=== PATIENT | male | born 1955 | race Caucasian/White ===

== ENCOUNTER 2016-05-28 11:22 | Outpatient (CLI) | payer BC, OTHER ==
[~2016-05-28 11:22] MED LIST: CLON2TAB PO; DESV50TA PO; DEXT5TAB15 PO
[2016-05-28 12:07] LABS: ADD UA MICROSCOPIC NO; BASOPHILS # (AUTO) 0.1 /CMM (0.0-0.2); BASOPHILS % (AUTO) 1.4 % (0.0-2.0); DIFF TOTAL % 100 %; EOSINOPHILS # (AUTO) 0.1 /CMM (0.0-0.7); EOSINOPHILS % (AUTO) 2.3 % (0.0-6.0); HEMATOCRIT 46 % (39-51); HEMOGLOBIN 15.2 g/dL (13.5-17.5); KETONES,URINE NEGATIVE (NEGATIVE); LEUKOCYTE ESTERASE ,URINE NEGATIVE (NEGATIVE); LYMPHOCYTES # (AUTO) 2.3 /CMM (0.8-4.8); LYMPHOCYTES % (AUTO) 42.3 % (20.0-44.0); MEAN CORPUSCULAR HEMOGLOBIN 31 PG (26.0-33.0); MEAN CORPUSCULAR HGB CONC 33 g/dl (31.0-36.0); MEAN CORPUSCULAR VOLUME 95 fL (80-96); MONOCYTES # (AUTO) 0.4 /CMM (0.1-1.30); MONOCYTES % (AUTO) 6.9 % (2.0-12.0); NEUTROPHILS # (AUTO) 2.5 /CMM (1.8-8.9); NEUTROPHILS % (AUTO) 47.1 % (43.0-81.0); PH,URINE 5.5 (5.0-8.0); PLATELET COUNT (AUTO) 208 /CMM (150-450); RED BLOOD CELL COUNT(AUTO) 4.84 MIL/uL (4.5-6.0); WHITE BLOOD COUNT (AUTO) 5.4 K/uL (4.3-11.0)
[2016-05-28 12:23] LABS: INR 0.99 (0.87-1.13); PROTHROMBIN TIME 10.7 SECS (9.5-12.7)
[2016-05-28 12:27] LABS: ALBUMIN 3.9 g/dL (3.4-5.0); BILIRUBIN,TOTAL 0.3 mg/dL (0.2-1.0); CALCIUM, SERUM 9.4 mg/dL (8.5-10.1); CREATININE 1.1 mg/dL (0.6-1.3); POTASSIUM 4.1 mmol/L (3.5-5.1); TOTAL PROTEIN, SERUM 7.1 g/dL (6.4-8.2)
== END 2016-05-28 23:59 | disposition home or self-care (01) ==
LOC: RAD 11:22
PROVIDERS: ATTEND Legal Medicine
DX: I10 Essential (primary) hypertension (principal); E78.5 Hyperlipidemia, unspecified; R53.1 Weakness; R06.02 Shortness of breath
CPT/HCPCS: 36415; 71020-TC; 80053-TC; 81000-TC; 85025-TC; 85730-TC

== ENCOUNTER 2016-06-03 05:15 | Day surgery (SDC) | payer BC, OTHER ==
[2016-06-03] MEDS ORDERED: IV SET PRIMARY 1 EA INFUS.SET MC ONE (05:41)
[2016-06-03] MEDS ORDERED: IV LR 1000 ML 1,000 ML ONE (05:41)
[2016-06-03] MEDS ORDERED: CEFAZOLIN SODIUM/DEXTROSE,ISO 50 ML IV ONE (05:41)
[2016-06-03] MEDS ORDERED: NEEDLELESS EST SET LARGE BORE 1 EA INFUS.SET MC ONE (05:42)
[2016-06-03] MEDS ORDERED: SECONDARY IV SET 1 EA INFUS.SET MC ONE (05:42)
[2016-06-03] MEDS ORDERED: LIDOCAINE HCL/PF 1% 30 ML SDV ONE (06:08)
[2016-06-03] MEDS ORDERED: MIDAZOLAM HCL 2 MG/2ML VIAL ONE (06:37)
[2016-06-03] MEDS ORDERED: FENTANYL PF 100MCG/2ML AMPUL ONE (06:37)
[2016-06-03] MEDS ORDERED: methylPREDNISolone ACETATE 80 MG/ML VIAL ONE (07:02)
== END 2016-06-03 08:10 ==
LOC: DS 05:15
PROVIDERS: ATTEND Specialist
DX: S83.242A Other tear of medial meniscus, current injury, left knee, initial encounter (principal); X58.XXXA Exposure to other specified factors, initial encounter; Y93.89 Activity, other specified; Y92.89 Other specified places as the place of occurrence of the external cause; Y99.8 Other external cause status; M94.262 Chondromalacia, left knee; I10 Essential (primary) hypertension; E78.5 Hyperlipidemia, unspecified; F32.9 Major depressive disorder, single episode, unspecified
CPT/HCPCS: 88304-TC; 88305-TC; 88311-TC; A4217; A6253; J0690; J1040; J2250; J3010; J3490; J7120

== ENCOUNTER 2017-07-29 14:16 | Outpatient (CLI) | payer BC ==
[2017-07-29 15:24] LABS: BASOPHILS % (AUTO) 0.6 % (0.0-2.0); EOSINOPHILS % (AUTO) 2.2 % (0.0-6.0); HEMATOCRIT 44 % (39-51); HEMOGLOBIN 15.3 g/dL (13.5-17.5); LYMPHOCYTES # (AUTO) 1.9 /CMM (0.8-4.8); LYMPHOCYTES % (AUTO) 31.1 % (20.0-44.0); MEAN CORPUSCULAR HGB CONC 35 g/dl (31.0-36.0); MEAN CORPUSCULAR VOLUME 93 fL (80-96); MONOCYTES # (AUTO) 0.5 /CMM (0.1-1.30); MONOCYTES % (AUTO) 7.5 % (2.0-12.0); NEUTROPHILS # (AUTO) 3.6 /CMM (1.8-8.9); NEUTROPHILS % (AUTO) 58.6 % (43.0-81.0); PLATELET COUNT (AUTO) 202 /CMM (150-450); RDW COEFFICIENT OF VARIATION 13.4 (11.5-15.0); RED BLOOD CELL COUNT(AUTO) 4.73 MIL/uL (4.5-6.0); WHITE BLOOD COUNT (AUTO) 6.1 K/uL (4.3-11.0)
[2017-07-29 15:34] LABS: BILIRUBIN,TOTAL 0.7 mg/dL (0.2-1.0); CALCIUM, SERUM 9.6 mg/dL (8.5-10.1); POTASSIUM 3.9 mmol/L (3.5-5.1); TOTAL PROTEIN, SERUM 7.4 g/dL (6.4-8.2)
[2017-07-29 16:07] LABS: APPEARANCE,URINE CLEAR (CLEAR); BILIRUBIN,URINE NEGATIVE (NEGATIVE); BLOOD, URINE NEGATIVE Ery/uL (NEGATIVE); COLOR,URINE YELLOW (YELLOW); KETONES,URINE NEGATIVE (NEGATIVE); LEUKOCYTE ESTERASE ,URINE NEGATIVE (NEGATIVE); NITRITE, URINE NEGATIVE (NEGATIVE); PROTEIN,URINE NEGATIVE (NEGATIVE); UGLUCOSE NEGATIVE (NEGATIVE); UROBILINOGEN,URINE 0.2 EU/dL (0.2)
[2017-07-29 17:30] LABS: PROSTATE SPECIFIC ANTIGEN SCR 2.22 ng/mL (0.00-4.00)
[2017-07-29 17:51] LABS: THYROID STIMULATING HORMONE 3.136 uIU/mL (0.358-3.74)
== END 2017-07-29 23:59 | disposition home or self-care (01) ==
LOC: LAB 14:16
PROVIDERS: ATTEND Legal Medicine
DX: Z00.01 Encounter for general adult medical examination with abnormal findings (principal); R79.89 Other specified abnormal findings of blood chemistry
CPT/HCPCS: 36415; 80053-TC; 80061-TC; 81000-TC; 82306; 82728-TC; 82746; 83540-TC; 84153-TC; 84402; 84403; 84443-TC; 84550-TC; 85025-TC

== ENCOUNTER 2019-03-03 10:43 | Outpatient (CLI) | payer BC, MEDICARE ==
[2019-03-03 11:31] LABS: BASOPHILS % (AUTO) 0.8 % (0.0-2.0); EOSINOPHILS % (AUTO) 2.7 % (0.0-6.0); HEMATOCRIT 47 % (39-51); HEMOGLOBIN 15.8 g/dL (13.5-17.5); LYMPHOCYTES # (AUTO) 1.9 /CMM (0.8-4.8); LYMPHOCYTES % (AUTO) 34.5 % (20.0-44.0); MEAN CORPUSCULAR HGB CONC 34 g/dl (31.0-36.0); MEAN CORPUSCULAR VOLUME 95 fL (80-96); MONOCYTES # (AUTO) 0.5 /CMM (0.1-1.30); MONOCYTES % (AUTO) 8.2 % (2.0-12.0); NEUTROPHILS % (AUTO) 53.8 % (43.0-81.0); PLATELET COUNT (AUTO) 183 /CMM (150-450); WHITE BLOOD COUNT (AUTO) 5.6 K/uL (4.3-11.0)
[2019-03-03 11:41] LABS: ALBUMIN 3.9 g/dL (3.4-5.0); BILIRUBIN,TOTAL 0.7 mg/dL (0.2-1.0); CALCIUM, SERUM 9.4 mg/dL (8.5-10.1); TOTAL PROTEIN, SERUM 7.1 g/dL (6.4-8.2)
[2019-03-03 12:08] LABS: FREE T4 (FREE THYROXINE) 0.77 ng/dL (0.76-1.46); PROSTATE SPECIFIC ANTIGEN SCR 2.18 ng/mL (0.00-4.00); THYROID STIMULATING HORMONE 2.724 uIU/mL (0.358-3.74)
[2019-03-03 12:29] LABS: APPEARANCE,URINE CLEAR (CLEAR); BILIRUBIN,URINE NEGATIVE (NEGATIVE); BLOOD, URINE NEGATIVE Ery/uL (NEGATIVE); COLOR,URINE YELLOW (YELLOW); KETONES,URINE NEGATIVE (NEGATIVE); LEUKOCYTE ESTERASE ,URINE NEGATIVE (NEGATIVE); NITRITE, URINE NEGATIVE (NEGATIVE); PH,URINE 6.5 (5.0-8.0); PROTEIN,URINE NEGATIVE (NEGATIVE); UGLUCOSE NEGATIVE (NEGATIVE); UROBILINOGEN,URINE 0.2 EU/dL (0.2)
[2019-03-04 10:07] LABS: FOLIC ACID 10.2 ng/mL (>3.0)
== END 2019-03-03 23:59 | disposition home or self-care (01) ==
LOC: LAB 10:43
PROVIDERS: ATTEND Legal Medicine
DX: Z00.00 Encounter for general adult medical examination without abnormal findings (principal); D64.9 Anemia, unspecified; E55.9 Vitamin D deficiency, unspecified; N40.0 Benign prostatic hyperplasia without lower urinary tract symptoms; E78.00 Pure hypercholesterolemia, unspecified; I10 Essential (primary) hypertension
CPT/HCPCS: 36415; 80053-TC; 80061-TC; 81000-TC; 82306; 82728-TC; 83540-TC; 84153-TC; 84402; 84403; 84439-TC; 84443-TC; 84550-TC; 85025-TC

== ENCOUNTER → 2020-09-10 | Outpatient (CLI) | payer BC, MEDICARE | END | disposition home or self-care (01) | LOC: RAD 09:52 | PROVIDERS: ATTEND Legal Medicine | DX: M17.11 Unilateral primary osteoarthritis, right knee (principal); M11.261 Other chondrocalcinosis, right knee; M47.817 Spondylosis without myelopathy or radiculopathy, lumbosacral region; M43.17 Spondylolisthesis, lumbosacral region; M48.061 Spinal stenosis, lumbar region without neurogenic claudication; M25.78 Osteophyte, vertebrae; I70.0 Atherosclerosis of aorta; M25.562 Pain in left knee; M25.522 Pain in left elbow | CPT/HCPCS: 72100-TC; 73080-TC; 73562 ==

== ENCOUNTER 2021-05-19 10:37 | Outpatient (CLI) | payer MEDICARE, BC ==
[2021-05-19 12:33] LABS: BASOPHILS % (AUTO) 0.6 % (0.0-2.0); EOSINOPHILS % (AUTO) 2.2 % (0.0-6.0); HEMATOCRIT 46 % (39-51); HEMOGLOBIN 15.7 g/dL (13.5-17.5); LYMPHOCYTES # (AUTO) 1.4 K/uL (0.8-4.8); LYMPHOCYTES % (AUTO) 22.1 % (20.0-44.0); MEAN CORPUSCULAR HGB CONC 34 g/dl (31.0-36.0); MEAN CORPUSCULAR VOLUME 96 fL (80-96); MONOCYTES # (AUTO) 0.5 K/uL (0.1-1.30); MONOCYTES % (AUTO) 7.8 % (2.0-12.0); NEUTROPHILS # (AUTO) 4.2 K/uL (1.8-8.9); NEUTROPHILS % (AUTO) 67.3 % (43.0-81.0); PLATELET COUNT (AUTO) 181 K/uL (150-450); WHITE BLOOD COUNT (AUTO) 6.2 K/uL (4.3-11.0)
[2021-05-19 12:34] LABS: BILIRUBIN,URINE NEGATIVE (NEGATIVE); COLOR,URINE YELLOW (YELLOW); LEUKOCYTE ESTERASE ,URINE NEGATIVE (NEGATIVE); NITRITE, URINE NEGATIVE (NEGATIVE); PROTEIN,URINE NEGATIVE (NEGATIVE); UGLUCOSE NEGATIVE (NEGATIVE); UROBILINOGEN,URINE 0.2 EU/dL (0.2)
[2021-05-19 12:37] LABS: C-REACTIVE PROTEIN 0.4 mg/dL (0.0-0.9); FREE T4 (FREE THYROXINE) 0.9 ng/dL (0.76-1.46); PROSTATE SPECIFIC ANTIGEN SCR 2.55 ng/mL (0.00-4.00); THYROID STIMULATING HORMONE 3.33 uIU/mL (0.358-3.74)
[2021-05-19 12:42] LABS: ALBUMIN 4.1 g/dL (3.4-5.0); BILIRUBIN,TOTAL 1.1 mg/dL (0.2-1.0); CALCIUM, SERUM 9.5 mg/dL (8.5-10.1); POTASSIUM 3.5 mmol/L (3.5-5.1); TOTAL PROTEIN, SERUM 7.5 g/dL (6.4-8.2)
[2021-05-19 12:51] LABS: BACTERIA,URINE None seen /HPF (None Seen); RBC,URINE 0-2 /HPF (0-2); SQUAMOUS EPITHELIAL CELL,UR Rare /HPF (None Seen); WBC,URINE 0-2 /HPF (0-3)
[2021-05-22 01:06] LABS: *AREA 13 IGE,TOTAL 611 IU/mL (6-495)
== END 2021-05-19 23:59 | disposition home or self-care (01) ==
LOC: LAB 10:37
PROVIDERS: ATTEND Legal Medicine
DX: Z00.00 Encounter for general adult medical examination without abnormal findings (principal); E11.9 Type 2 diabetes mellitus without complications; E78.5 Hyperlipidemia, unspecified; E03.9 Hypothyroidism, unspecified; D64.9 Anemia, unspecified; J30.9 Allergic rhinitis, unspecified; R53.1 Weakness; Z12.5 Encounter for screening for malignant neoplasm of prostate
CPT/HCPCS: 36415; 80053-TC; 80061-TC; 81001; 82607-TC; 82728-TC; 82785; 83540-TC; 84153-TC; 84402; 84403; 84439-TC; 84443-TC; 85025-TC; 85652-TC; 86140-TC

== ENCOUNTER 2024-06-15 17:19 | Emergency (ER) | payer BC, MEDICARE ==
[~2024-06-15] VITALS: Ht 190.5 cm; Wt 76.7 kg
[2024-06-15 17:59] LABS: BASOPHILS % (AUTO) 0.3 % (0.0-2.0); EOSINOPHILS % (AUTO) 0.1 % (0.0-6.0); HEMATOCRIT 43 % (39-51); HEMOGLOBIN 15.1 g/dL (13.5-17.5); LYMPHOCYTES # (AUTO) 0.9 K/uL (0.8-4.8); LYMPHOCYTES % (AUTO) 6.3 % (20.0-44.0); MEAN CORPUSCULAR HEMOGLOBIN 34 PG (26.0-33.0); MEAN CORPUSCULAR HGB CONC 35 g/dl (31.0-36.0); MEAN CORPUSCULAR VOLUME 96 fL (80-96); MONOCYTES # (AUTO) 1.1 K/uL (0.1-1.30); MONOCYTES % (AUTO) 7.3 % (2.0-12.0); NEUTROPHILS # (AUTO) 12.7 K/uL (1.8-8.9); PLATELET COUNT (AUTO) 153 K/uL (150-450); RED BLOOD CELL COUNT(AUTO) 4.51 MIL/uL (4.5-6.0); RED CELL DISTRIBUTION WIDTH 13.3 % (11.5-15.0); WHITE BLOOD COUNT (AUTO) 14.7 K/uL (4.3-11.0)
[2024-06-15 18:07] LABS: CALCIUM, SERUM 9.3 mg/dL (8.5-10.1); CREATININE 1.2 mg/dL (0.6-1.3); POTASSIUM 4.1 mmol/L (3.5-5.1)
[2024-06-15 18:12] LABS: ALBUMIN 3.6 g/dL (3.4-5.0); BILIRUBIN,DIRECT 0.3 mg/dL (0.0-0.2); BILIRUBIN,TOTAL 1.3 mg/dL (0.2-1.0); TOTAL PROTEIN, SERUM 7.2 g/dL (6.4-8.2)
[2024-06-15 18:49] LABS: APPEARANCE,URINE CLOUDY (CLEAR); BILIRUBIN,URINE 1+ (NEGATIVE); BLOOD, URINE 3+ Ery/uL (NEGATIVE); COLOR,URINE DARK YELLOW (YELLOW); KETONES,URINE 1+ mg/dL (NEGATIVE); LEUKOCYTE ESTERASE ,URINE 2+ (NEGATIVE); NITRITE, URINE POSITIVE (NEGATIVE); PROTEIN,URINE 2+ mg/dl (NEGATIVE); UGLUCOSE NEGATIVE (NEGATIVE)
[2024-06-15] MEDS ORDERED: KETOROLAC TROMETHAMINE 15 MG/ML VIAL ONE (18:56)
[2024-06-15] MEDS ORDERED: CEFTRIAXONE 1GM BAG (ER ONLY) 50 ML IV ONE (18:56)
[2024-06-15] MEDS: IV NS 0.9% 1,000 ML BAG IV ONE (19:07)
[2024-06-15] MEDS: CEFTRIAXONE 1 G in IV D5W 50 ML IV ONE (19:08)
[2024-06-15] MEDS: KETOROLAC TROMETHAMINE 15 MG/ML VIAL IV ONE (19:08)
[2024-06-15 19:13] LABS: RBC,URINE TOO NUMEROUS TO COUN /HPF (0-2); WBC,URINE 81-100 /HPF (0-3)
[2024-06-15 19:14] LABS: ADD URINE CULTURE YES; BACTERIA,URINE Moderate /HPF (None Seen); SQUAMOUS EPITHELIAL CELL,UR Moderate /HPF (None Seen)
[2024-06-15] MEDS ORDERED: CEPH-570 PO (20:23)
[2024-06-15] MEDS ORDERED: TAMS-12 PO (20:23)
[2024-06-15 20:36] VITALS: BP 126/71; TEMP 98; O2SAT 99
== END 2024-06-15 20:37 | disposition home or self-care (01) ==
LOC: ER 18:27
DX: N39.0 Urinary tract infection, site not specified (principal); N40.0 Benign prostatic hyperplasia without lower urinary tract symptoms; R31.9 Hematuria, unspecified; F32.A Depression, unspecified; Z88.8 Allergy status to other drugs, medicaments and biological substances
CPT/HCPCS: 99285; 74176; 96365; 96375; 85025; 80048; 83690; 80076; 81001; 36415; J1885; J7030; J0696

== ENCOUNTER 2024-07-18 07:50 | Emergency (ER) | payer MEDICARE ==
[~2024-07-18] VITALS: Ht 190.5 cm; Wt 77.1 kg
[~2024-07-18 07:50] MED LIST changes: +CEPH-570 PO; +TAMS-12 PO
[2024-07-18 08:23] LABS: BASOPHILS % (AUTO) 0.9 % (0.0-2.0); EOSINOPHILS # (AUTO) 0.2 K/uL (0.0-0.7); EOSINOPHILS % (AUTO) 3.8 % (0.0-6.0); HEMATOCRIT 43 % (39-51); HEMOGLOBIN 14.7 g/dL (13.5-17.5); LYMPHOCYTES # (AUTO) 1.4 K/uL (0.8-4.8); MEAN CORPUSCULAR HEMOGLOBIN 33 PG (26.0-33.0); MEAN CORPUSCULAR HGB CONC 35 g/dl (31.0-36.0); MEAN CORPUSCULAR VOLUME 95 fL (80-96); MONOCYTES # (AUTO) 0.3 K/uL (0.1-1.30); MONOCYTES % (AUTO) 8.4 % (2.0-12.0); NEUTROPHILS # (AUTO) 2.1 K/uL (1.8-8.9); NEUTROPHILS % (AUTO) 51.9 % (43.0-81.0); PLATELET COUNT (AUTO) 154 K/uL (150-450); RED BLOOD CELL COUNT(AUTO) 4.47 MIL/uL (4.5-6.0); RED CELL DISTRIBUTION WIDTH 13.3 % (11.5-15.0); WHITE BLOOD COUNT (AUTO) 4.1 K/uL (4.3-11.0)
[2024-07-18] MEDS: IV NS 0.9% 1,000 ML BAG IV ONE (08:26)
[2024-07-18 08:30] LABS: CALCIUM, SERUM 10.1 mg/dL (8.5-10.1); POTASSIUM 3.9 mmol/L (3.5-5.1)
[2024-07-18 08:36] LABS: BILIRUBIN,DIRECT 0.2 mg/dL (0.0-0.2); BILIRUBIN,TOTAL 0.7 mg/dL (0.2-1.0)
[2024-07-18 10:04] LABS: APPEARANCE,URINE CLEAR (CLEAR); BILIRUBIN,URINE NEGATIVE (NEGATIVE); BLOOD, URINE TRACE-INTA Ery/uL (NEGATIVE); COLOR,URINE YELLOW (YELLOW); KETONES,URINE NEGATIVE (NEGATIVE); LEUKOCYTE ESTERASE ,URINE TRACE (NEGATIVE); NITRITE, URINE NEGATIVE (NEGATIVE); PROTEIN,URINE NEGATIVE (NEGATIVE); UGLUCOSE NEGATIVE (NEGATIVE); UROBILINOGEN,URINE 0.2 EU/dL (0.2)
[2024-07-18 10:08] LABS: ADD URINE CULTURE YES; BACTERIA,URINE Rare /HPF (None Seen); RBC,URINE 0-2 /HPF (0-2); SQUAMOUS EPITHELIAL CELL,UR 0-2 /HPF (None Seen)
[2024-07-18] MEDS ORDERED: CEPH-570 PO (10:22)
[2024-07-18 10:49] VITALS: BP 132/97; TEMP 98.3; O2SAT 96
== END 2024-07-18 10:50 | disposition home or self-care (01) ==
LOC: ER 07:57
DX: N39.0 Urinary tract infection, site not specified (principal); F32.A Depression, unspecified
CPT/HCPCS: 99285; 74176; 96360; 85025; 80048; 87086; 83690; 80076; 81001; 36415; J7030